=== PATIENT | female | born 1960 | race African-American/Black ===

== ENCOUNTER 2017-03-13 06:28 | Emergency (ER) | payer BC ==
[~2017-03-13] VITALS: Ht 160 cm; Wt 107.0 kg
[2017-03-13] MEDS ORDERED: IPRATROPIUM BROMIDE (0.02%) 0.5MG/2.5ML NEB HHN STA ×2 (06:51→08:50)
[2017-03-13] MEDS ORDERED: ALBUTEROL (0.083%) 2.5MG/3ML NEB HHN STA ×2 (06:51→08:50)
[2017-03-13] MEDS ORDERED: SODIUM CHLORIDE 0.9% 1,000 ML IV SCH (06:51)
[2017-03-13] MEDS ORDERED: METHYLPREDNISOLONE SOD SUCC 125 MG/2 ML VIAL IV ONE (07:00)
[2017-03-13] MEDS ORDERED: FAMOTIDINE 20MG/2ML VIAL IV ONE (07:00)
[2017-03-13] MEDS ORDERED: EPINEPHRINE 1:1000 1 MG/ML AMP IM ONE (07:00)
[2017-03-13] MEDS ORDERED: DIPHENHYDRAMINE 50MG/ML VIAL IV ONE (07:00)
[2017-03-13 08:55] VITALS: BP 163/90
== END 2017-03-13 10:19 | disposition home or self-care (01) ==
LOC: ER 06:28
DX: T78.2XXA Anaphylactic shock, unspecified, initial encounter (principal); I10 Essential (primary) hypertension; E66.9 Obesity, unspecified; R09.02 Hypoxemia; Z88.5 Allergy status to narcotic agent; Y92.89 Other specified places as the place of occurrence of the external cause
CPT/HCPCS: 71045; 94640; 96361; 96372; 96374; 96375; 99285; J0171; J1200; J2930; J3490; J7030; J7611; Z7610